=== PATIENT | female | born 1940 | race Caucasian/White ===

== ENCOUNTER 2017-10-23 17:44 | Emergency (ER) | payer MEDICARE, BC ==
[~2017-10-23] VITALS: Ht 175.3 cm; Wt 120.0 kg
[~2017-10-23 17:44] MED LIST: ADLT ASA LOW81 MG PO; ALEVE220 MG OR; ASA LO-DOSE81 MG OR; CALCIUM + D600 MG PO; CARAFATE1 GM/10 M1 PO; EXFORGE HC4 PO; EXFORGE1 TA1 PO; IMDUR30 MG PO; K-DUR/KLOR-CON10 MEQ PO; LASIX 20 MG TAB20 MG PO; LIPITOR40 MG PO; LIPITOR80 MG OR; LIPITOR80 MG PO; LISINOPRIL10 MG PO; LOPRESSOR25 MG PO; METOPROL TAR100 MG PO; METOPROL TAR25 M1 OR; METOPROLOL TAR100 MG PO; METOPROLOL100 MG OR; MULTAQ400 MG PO; NEXIUM40 M1 PO; NITROSTAT0.4 MG SL; NORVASC10 MG PO; PACERONE200 MG PO; PAROXETINE20 MG OR; PLAVIX75 MG PO; VICOPROFEN OR; WARFARIN5 MG PO; XARELTO20 MG PO; exforge
[2017-10-23 19:36] VITALS: BP 146/74
[2017-10-29] MEDS ORDERED: METOPROLOL TAR100 MG PO (13:53)
[2017-10-29] MEDS ORDERED: AMIODARONE HCL200 MG PO (13:54)
[2017-10-29] MEDS ORDERED: WARFARIN7.5 MG PO (13:55)
[2017-10-29] MEDS ORDERED: WARFARIN5 MG PO (13:56)
[2017-10-29] MEDS ORDERED: ATORVASTATIN CA20 MG PO (13:57)
== END 2017-10-23 19:36 | disposition home or self-care (01) ==
LOC: ED 17:44
PROC: 2W3CX1Z Immobilization of Right Lower Arm using Splint (ICD-10-PCS; principal; 2017-10-23)
DX: S52.501A Unspecified fracture of the lower end of right radius, initial encounter for closed fracture (principal); I10 Essential (primary) hypertension; I25.10 Atherosclerotic heart disease of native coronary artery without angina pectoris; I25.2 Old myocardial infarction; W01.0XXA Fall on same level from slipping, tripping and stumbling without subsequent striking against object, initial encounter; Y92.009 Unspecified place in unspecified non-institutional (private) residence as the place of occurrence of the external cause

== ENCOUNTER 2017-11-01 09:52 | Day surgery (SDC) | payer MEDICARE, BC ==
[~2017-11-01] VITALS: Ht 175.3 cm; Wt 133.8 kg
[~2017-11-01 09:52] MED LIST changes: +AMIODARONE HCL200 MG PO; +ATORVASTATIN CA20 MG PO; +WARFARIN7.5 MG PO
[2017-11-01 10:42] LABS: ACT PARTIAL THROMBO TIME 34.8 SECONDS (20.0-32.5); INTERNATIONAL NORMALIZED RATIO 1.8 RATIO (0.7-1.3); PROTHROMBIN TIME 20.7 SECONDS (9.0-12.5)
[2017-11-01] MEDS ORDERED: HYDROCODONE/ACE1 TAB PO (15:18)
[2017-11-01 16:11] VITALS: BP 151/65
== END 2017-11-01 16:00 | disposition home or self-care (01) ==
LOC: ORM 09:52
PROVIDERS: ATTEND Orthopaedic Surgery
PROC: 0PSH04Z Reposition Right Radius with Internal Fixation Device, Open Approach (ICD-10-PCS; principal; 2017-11-01)
DX: S52.531A Colles' fracture of right radius, initial encounter for closed fracture (principal); I10 Essential (primary) hypertension; W19.XXXA Unspecified fall, initial encounter; Z79.01 Long term (current) use of anticoagulants
CPT/HCPCS: J1100

== ENCOUNTER 2019-10-30 | Emergency (ER) | payer MEDICARE, BC ==
[~2019-10-30] MED LIST changes: +HYDROCODONE/ACE1 TAB PO
[2019-10-30] MEDS ORDERED: CRESTOR40 MG PO (10:00)
[2019-10-30 10:31] LABS: HEMATOCRIT 42.3 % (37.0-47.0); HEMOGLOBIN 13.4 g/dl (12.0-16.0); IMMATURE GRANULOCYTES 0.5 % (0.0-5.0); MEAN CELL VOLUME 96.1 fL CALC (80.0-100.0); MEAN CORPUSCULAR HGB 30.5 pG CALC (26.0-32.0); MEAN CORPUSCULAR HGB CONC 31.7 g/L CALC (32.0-36.0); NEUT# 4.7 thou/uL (2.00-7.15); RED BLOOD COUNT 4.4 mill/uL (4.20-5.60); RED CELL DISTRI WIDTH 13.3 % (11.5-15.5)
[2019-10-30 10:58] LABS: INTERNATIONAL NORMALIZED RATIO 2.2 RATIO (0.7-1.3); PROTHROMBIN TIME 22.6 SECONDS (9.0-12.5)
[2019-10-30 11:01] LABS: ALBUMIN 3.8 g/dL (3.2-5.0); BILIRUBIN, TOTAL 0.6 mg/dL (0.0-1.4); CREATININE 1.3 mg/dL (0.5-1.0); POTASSIUM 4.6 mmol/l (3.5-5.1); TOTAL PROTEIN 6.8 g/dL (6.3-8.2)
== END 2019-10-30 14:50 | disposition short-term general hospital (02) ==
PROVIDERS: Emergency Medicine
DX: S72.402A Unspecified fracture of lower end of left femur, initial encounter for closed fracture (principal); M97.12XA Periprosthetic fracture around internal prosthetic left knee joint, initial encounter; S51.812A Laceration without foreign body of left forearm, initial encounter; I10 Essential (primary) hypertension; I25.10 Atherosclerotic heart disease of native coronary artery without angina pectoris; I25.2 Old myocardial infarction; W01.0XXA Fall on same level from slipping, tripping and stumbling without subsequent striking against object, initial encounter; Y92.000 Kitchen of unspecified non-institutional (private) residence as the place of occurrence of the external cause; Z96.642 Presence of left artificial hip joint